=== PATIENT | female | born 1970 | race Two or more races ===

== ENCOUNTER 2020-08-18 18:03 | Emergency (ER) | payer OTHER ==
[~2020-08-18] VITALS: Ht 152.4 cm; Wt 72.6 kg
[2020-08-18] MEDS ORDERED: TOPROL XL100 M1 PO (18:14)
[2020-08-18] MEDS ORDERED: NORVASC10 MG (18:14)
== END 2020-08-18 19:49 | disposition home or self-care (01) ==
LOC: ER 18:03
DX: L29.8 Other pruritus (principal); T78.49XA Other allergy, initial encounter; X58.XXXA Exposure to other specified factors, initial encounter